=== PATIENT | male | born 1960 | race Caucasian/White ===

== ENCOUNTER → 2025-01-31 10:34 | Outpatient (REF) | payer BC, SELFPAY | LOC: RAD 10:34 | PROVIDERS: ATTENDING PHYSICIAN Physician Assistant Medical | DX: S14.3XXA Injury of brachial plexus, initial encounter (principal); M54.12 Radiculopathy, cervical region; M25.511 Pain in right shoulder | CPT/HCPCS: 73030 ==

== ENCOUNTER → 2025-02-05 10:47 | Outpatient (REF) | payer BC, SELFPAY | LOC: RAD 10:47 | PROVIDERS: ATTENDING PHYSICIAN Physician Assistant Medical; FAMILY PHYSICIAN Family Medicine | DX: M54.12 Radiculopathy, cervical region (principal); S14.3XXA Injury of brachial plexus, initial encounter; Z13.89 Encounter for screening for other disorder; W31.1XXA Contact with metalworking machines, initial encounter | CPT/HCPCS: 70030 ==

== ENCOUNTER → 2025-02-25 09:09 | Outpatient (REF) | payer BC, SELFPAY | LOC: EMG 09:09 | PROVIDERS: ATTENDING PHYSICIAN Neurological Surgery; FAMILY PHYSICIAN Physician Assistant Medical | DX: M54.12 Radiculopathy, cervical region (principal); R20.0 Anesthesia of skin | CPT/HCPCS: 95886; 95909 ==